=== PATIENT | female | born 1990 | race Caucasian/White ===

== ENCOUNTER 2024-01-28 11:27 | Outpatient (CLI) | payer OTHER | END 2024-01-28 11:28 | disposition home or self-care (01) | LOC: BICRAD 11:27 | PROVIDERS: ATTEND Surgery | DX: S32.019D Unspecified fracture of first lumbar vertebra, subsequent encounter for fracture with routine healing (principal); N20.0 Calculus of kidney | CPT/HCPCS: 72100 ==

== ENCOUNTER 2024-03-25 13:46 | Outpatient (CLI) | payer OTHER | END 2024-03-25 13:47 | disposition home or self-care (01) | LOC: BICRAD 13:46 | PROVIDERS: ATTEND Surgery | DX: S32.019A Unspecified fracture of first lumbar vertebra, initial encounter for closed fracture (principal); M43.8X6 Other specified deforming dorsopathies, lumbar region | CPT/HCPCS: 72100 ==